=== PATIENT | female | born 1955 | race Caucasian/White ===

== ENCOUNTER 2023-10-08 16:25 | Emergency (ER) | payer MEDICARE, SELFPAY ==
[2023-10-08 16:28] VITALS: BP 167/97; PULSE 82; RESP 16; TEMP 36.6; O2SAT 97; BMI 29.0
--- NOTE | 2023-10-08 16:42 | ED.FALL ---
HPI - Fall General Time Seen by Provider: 16:43 Date Seen: 10/08/23 Chief Complaint: Fall/Minor Trauma Stated Complaint: Fell on face-L eye hematoma, no LOC Time Seen by Provider: 10/08/23 16:30 Source: patient and RN notes reviewed Mode of arrival: ambulatory Limitations: no limitations History of Present Illness HPI Narrative: This 68-year-old female is coming in after a fall today. [place], is up here helping her daughter move. She was walking up the driveway digging through her purse when she tripped and fell forward. There was no loss of consciousness, she does have some mild neck pain now but thinks this just defer sore from the fall. Pain is not going into her arms. There is no numbness weakness tingling anywhere. She is not on any blood thinners. She is having no difficulty breathing, no chest or chest wall pain. No pain in her arms or legs from the fall. She has ice on the swelling of her left upper eye. She notes no visual changes such as blurry vision or double vision. No headache. She states her tetanus is very likely well over 10 years ago. She does agree to have her tetanus updated. complaint: fall Related Data Home Medications ?Medication ?Instructions ?Recorded ?Confirmed anastrozole 1 mg tablet 1 mg PO DAILY 10/08/23 10/08/23 atenolol 25 mg tablet 25 mg PO DAILY 10/08/23 10/08/23 levothyroxine .ROUTE 10/08/23 Allergies Allergy/AdvReac Type Severity Reaction Status Date / Time No Known Drug Allergies Allergy Verified 10/08/23 16:32 Review of Systems Status of ROS: Reports: 6 or more systems reviewed and unremarkable except as noted in History and below [facility] Social History Smoking Status: Never smoker How often do you have a drink containing alcohol: never AUDIT-C Alcohol total score: 0 Non-prescribed substance use: denies use Exam Const: Vital Signs, click to edit/add: Vital Signs - 24 hr 10/08/23 16:28 Temperature 97.9 F Pulse Rate [Right Pulse Oximeter] 82 Respiratory Rate 16 Blood Pressure [Ri ght Upper Arm] 167/97 H Pulse Oximetry 97 Oxygen Delivery Me thod Room Air This 68-year-old female is alert, interactive, no apparent distress. She has ecchymosis encompassing the left upper eyelid area, just below the eyebrow. It does not extend all the way down into eyelid itself, can still see patient's or bit although there is some swelling. Sclera clear, extraocular muscles intact. Pupils are equal round and reactive, conjugate gaze. She has a very superficial abraded area in mild superficial laceration on the lateral aspect outside of the eyebrow on this side. Otherwise, normal symmetrical facial function. TMs canals normal, no drainage from nares. Neck no midline tenderness, no paraspinous tenderness, does not complain of pain on range of motion, no cervical adenopathy no masses. Lungs are clear, good air entry, wheeze or crackles. CV regular rate and rhythm, no murmur. Mobilize is both upper extremities without any difficulty, neurologic status intact. Patient was ambulatory into the ED of her own accord, has no complaints of her lower extremities. Documenting provider has reviewed patient's vital signs: yes Course Course ED Course: Reviewed with this patient that we will update her tetanus. I do think she should have imaging of her head, cervical spine and maxillofacial imaging to rule out traumatic change. She states she came in as she was worried about something of this nature and does agree to have the imaging done. She will continue ice to her left upper eye lid area. Nursing staff will clean the wound out, may need to just place a few Steri-Strips but will see once the wound is clean. Reevaluation(s) Time of Reevaluation #1: 19:13 Reevaluation #1: Reviewed negative CT reports outside of the left periorbital hematoma. She has had her tetanus updated. Steri-Strips were applied on the very superficial laceration of the left upper outer eyebrow area. There was good wound approximation baseline in Steri-Strips were used to reinforce this. Vital Signs Vital signs: Initial Vital Signs Temperature 97.9 F 10/08/23 16:28 Temperature Source Temporal Artery Scan 10/08/23 16:28 Pulse Rate 82 10/08/23 16:28 Pulse Rhythm Regular 10/08/23 16:28 Pulse Strength 3+ Normal 10/08/23 16:28 Respiratory Rate 16 10/08/23 16:28 Blood Pressure 167/97 H 10/08/23 16:28 Blood Pressure Mean 120 H 10/08/23 16:28 Blood Pressure Position Sitting 10/08/23 16:28 Pulse Oximetry 97 10/08/23 16:28 Oxygen Delivery Method Room Air 10/08/23 16:28 Vital Signs Temperature 97.9 F 10/08/23 16:28 Pulse Rate 82 10/08/23 16:28 Respiratory Rate 16 10/08/23 16:28 Blood Pressure 167/97 H 10/08/23 16:28 Pulse Oximetry 97 10/08/23 16:28 Oxygen Delivery Method Room Air 10/08/23 16:28 Temperature 97.9 F 10/08/23 16:28 Pulse Rate 82 10/08/23 16:28 Respiratory Rate 16 10/08/23 16:28 Blood Pressure 167/97 H 10/08/23 16:28 Pulse Oximetry 97 10/08/23 16:28 Oxygen Delivery Method Room Air 10/08/23 16:28 Medications Administered Medications: Discontinued Medications Generic Name Dose Route Start Last Admin Trade Name Freq PRN Reason Stop Dose Admin Diphtheria/Tetanus/Acell Pertussis 0.5 ml 10/08/23 16:56 10/08/23 17:28 Tetanus/Diphth/Pertussis 0.5 Ml Syringe IM 10/08/23 16:57 0.5 ml .ONCE ONE Administration MDM - Fall Imaging Data CT scan - head: Attestation: I have reviewed the pertinent imaging results. Radiologist's impression: Patient: ADÁN COELHO Facility:?[facility] Patient ID:?[id number] Site Patient ID:?[id number]. Site :?[id number] Study:?CT-Head WITHOUT-10/08/2023 6:33:13 PM Ordering Physician:?Mil Curry Final Report: Indication Trauma. TECHNIQUE: CT brain: Noncontrast CT images of the brain. CT facial bones: Noncontrast CT images of the facial bones. COMPARISON: None. FINDINGS: CT brain: The ventricles and sulci are within normal limits for patient age. No mass effect or midline shift. The obrien-white differentiation is maintained. No acute intracranial hemorrhage or pathologic extra-axial fluid collection. The calvarium is intact. CT bones: Left periorbital hematoma. The globes are symmetric. No retrobulbar hemorrhage. The facial bones are intact. No acute fracture or dislocation. Mild paranasal sinus mucosal thickening. Mastoid air cells are clear. Moderate bilateral temporomandibular joint degenerative changes. IMPRESSION: 1. No acute intracranial hemorrhage or mass effect. 2. No acute fracture or dislocation of the facial bones. 3. Left periorbital hematoma. No retrobulbar hemorrhage. Please note that all CT scans at this facility use dose modulation, iterative reconstruction, and/or weight-based dosing when appropriate to reduce radiation dose to as low as reasonably achievable. Dictated by Bg Chery MD @ 10/08/2023 6:52:40 PM (Electronic Signature) CT cervical spine: Attestation: I have reviewed the pertinent imaging results. Radiologist's impression: Patient: ADÁN COELHO Facility:?[facility] Patient ID:?[id number] Site Patient ID:?[id number]. Site :?[id number] Study:?CT-Spine Cervical WITHOUT-10/08/2023 6:33:34 PM Ordering Physician:?Mil Curry Final Report: INDICATION: Fall. TECHNIQUE: Noncontrast CT images of the cervical spine. COMPARISON: None. FINDINGS: The cervical lordosis is maintained. Vertebral heights are maintained. No acute fracture or traumatic subluxation. Moderate disc height loss at C5-6 and C6-7. Multilevel posterior disc osteophyte complexes contribute to moderate severe spinal canal stenosis at C5-6. Multilevel uncinate spurring and facet arthropathy contribute to advanced neural foraminal stenosis on the left at C5-6 and C6-7. No concerning opacities in the lung apices. IMPRESSION: 1. No acute fracture or traumatic subluxation. 2. Multilevel cervical spondylosis. Please note that all CT scans at this facility use dose modulation, iterative reconstruction, and/or weight-based dosing when appropriate to reduce radiation dose to as low as reasonably achievable. Dictated by Bg Chery MD @ 10/08/2023 6:58:55 PM (Electronic Signature) Discharge Plan Discharge Clinical Impression: Fall, Periorbital hematoma of left eye Patient Disposition: Home, Self-Care Condition: Stable Instructions: Hematoma (ED) Additional Instructions: Can use Tylenol or ibuprofen, follow bottle directions for dosing. Continue to ice this upper eyelid area for the next 3-5 days, recommend 20 minutes on and 10 minutes off as you are able to do so. Sleeping with your head elevated can help the swelling resolve. If there are concerns or questions in the future regarding your injuries, please seek re-evaluation. Activity Level: Activity as Tolerated Prescriptions: No Action atenolol 25 mg tablet 25 mg PO DAILY levothyroxine .ROUTE anastrozole 1 mg tablet 1 mg PO DAILY Follow Up/Referrals: Provider,Not a Local [Primary Care Provider] - Stand Alone Forms: [employer] Info Instructions
--- NOTE | 2023-10-08 16:56 | CRLHL7_ITS ---
For Patients: As a result of the Century Cures Act, medical imaging exams and procedure reports are released immediately into your electronic medical record. You may view this report before your referring provider. If you have questions, please contact your health care provider. Indication Trauma. TECHNIQUE: CT brain: Noncontrast CT images of the brain. CT facial bones: Noncontrast CT images of the facial bones. COMPARISON: None. FINDINGS: CT brain: The ventricles and sulci are within normal limits for patient age. No mass effect or midline shift. The obrien-white differentiation is maintained. No acute intracranial hemorrhage or pathologic extra-axial fluid collection. The calvarium is intact. CT bones: Left periorbital hematoma. The globes are symmetric. No retrobulbar hemorrhage. The facial bones are intact. No acute fracture or dislocation. Mild paranasal sinus mucosal thickening. Mastoid air cells are clear. Moderate bilateral temporomandibular joint degenerative changes. IMPRESSION: 1. No acute intracranial hemorrhage or mass effect. 2. No acute fracture or dislocation of the facial bones. 3. Left periorbital hematoma. No retrobulbar hemorrhage. Please note that all CT scans at this facility use dose modulation, iterative reconstruction, and/or weight-based dosing when appropriate to reduce radiation dose to as low as reasonably achievable. Dictated by Bg Chery MD @ 10/08/2023 6:52:40 PM (Electronically Signed)
--- NOTE | 2023-10-08 16:56 | CRLHL7_ITS ---
For Patients: As a result of the Century Cures Act, medical imaging exams and procedure reports are released immediately into your electronic medical record. You may view this report before your referring provider. If you have questions, please contact your health care provider. INDICATION: Fall. TECHNIQUE: Noncontrast CT images of the cervical spine. COMPARISON: None. FINDINGS: The cervical lordosis is maintained. Vertebral heights are maintained. No acute fracture or traumatic subluxation. Moderate disc height loss at C5-6 and C6-7. Multilevel posterior disc osteophyte complexes contribute to moderate severe spinal canal stenosis at C5-6. Multilevel uncinate spurring and facet arthropathy contribute to advanced neural foraminal stenosis on the left at C5-6 and C6-7. No concerning opacities in the lung apices. IMPRESSION: 1. No acute fracture or traumatic subluxation. 2. Multilevel cervical spondylosis. Please note that all CT scans at this facility use dose modulation, iterative reconstruction, and/or weight-based dosing when appropriate to reduce radiation dose to as low as reasonably achievable. Dictated by Bg Chery MD @ 10/08/2023 6:58:55 PM (Electronically Signed)
[2023-10-08] MEDS: TETANUS/DIPHTH/PERTUSSIS 0.5 ML SYRINGE IM (17:28)
== END 2023-10-08 19:23 | disposition home or self-care (01) ==
PROVIDERS: Emergency Provider Family Medicine
DX: S00.12XA Contusion of left eyelid and periocular area, initial encounter (principal); W01.10XA Fall on same level from slipping, tripping and stumbling with subsequent striking against unspecified object, initial encounter
CPT/HCPCS: 70450; 70486; 72125; 90471; 90715; 99284